=== PATIENT | male | born 1990 | race Caucasian/White ===

== ENCOUNTER 2018-05-07 22:16 | Emergency (ER) | payer OTHER ==
[~2018-05-07] VITALS: Ht 182.9 cm; Wt 104.3 kg
[2018-05-07 22:25] VITALS: BP_SYST 140
[2018-05-07] MEDS ORDERED: LIDOCAINE 1% 10 MG/ML, 20 ML MDV INJ ONE (23:15)
[2018-05-07] MEDS ORDERED: SILVER NITRATE APPLICATOR 1 STICK STICK..EA. TP ONE ×2 (23:31→23:35)
[2018-05-08 00:10] VITALS: BP_SYST 125
[2018-05-08] MEDS ORDERED: SILVER NITRATE APPLICATOR 1 STICK STICK..EA. TP ONE (00:15)
== END 2018-05-08 00:10 | disposition home or self-care (01) ==
LOC: SED 22:16
DX: L60.0 Ingrowing nail (principal); M54.2 Cervicalgia; M54.9 Dorsalgia, unspecified; V89.2XXA Person injured in unspecified motor-vehicle accident, traffic, initial encounter; Y93.89 Activity, other specified; Y92.410 Unspecified street and highway as the place of occurrence of the external cause; Y99.8 Other external cause status
CPT/HCPCS: 11730; 99283; J2001